=== PATIENT | male | born 1985 | race Hispanic/Latino ===

== ENCOUNTER 2025-04-20 19:45 | Emergency (ER) | payer SELFPAY ==
[2025-04-20] MEDS ORDERED: diphenhydrAMINE 50 MG/ML VIAL ONE (21:14)
[2025-04-20] MEDS ORDERED: Metoclopramide HCl 10 MG (2 mL) VIAL ONE (21:15)
[2025-04-20] MEDS ORDERED: Ketorolac Tromethamine 30 MG (1 mL) VIAL ONE (21:15)
[2025-04-20 21:35] LABS: #Basophils 0.09 10x3/uL (0.0-0.2); #Eosinophils 0.26 10x3/uL (0.0-0.5); #Monocytes 0.63 10x3/uL (0.0-1.1); #Neutrophils 5.44 10x3/uL (1.5-8.4); %Basophils 1.0 % (0.0-2.0); %Eosinophils 2.9 % (0.0-6.0); %Lymphocytes 29.1 % (18.0-47.0); %Monocytes 6.9 % (0.0-10.0); %Neutrophils 59.8 % (40.0-75.0); Hematocrit 42.7 % (38.8-50.0); Hemoglobin 15.0 g/dL (13.5-17.5); Mean Corpuscular Hemoglobin 29.1 pg (27.0-33.0); Mean Corpuscular Volume 82.9 fL (81.2-95.1); Platelet Count 337 10x3/uL (150-450); Red Blood Cell (RBC) Count 5.15 10x6/uL (4.32-5.72); White Blood Cell (WBC) Count 9.10 10x3/uL (3.5-10.5)
[2025-04-20 21:50] LABS: ALT (SGPT) 20 U/L (Less than 45); AST (SGOT) 20 U/L (11-34); Albumin 4.6 g/dL (3.1-4.5); Alkaline Phosphatase 108 U/L (40-110); Anion Gap 12 mmol/L (10-20); BUN (Urea Nitrogen) 15 mg/dL (8.9-20.6); Bilirubin, Total 0.8 mg/dL (0.3-1.2); Calc. Creatinine Clearance 0 mL/min (70-130); Calcium 9.2 mg/dL (7.8-10.44); Carbon Dioxide 25 mmol/L (22-29); Chloride 107 mmol/L (98-107); Globulin 3.3 g/dL (2.4-3.5); Glucose 104 mg/dL (70-105); Potassium 3.6 mmol/L (3.5-5.1); Sodium 140 mmol/L (136-145)
== END 2025-04-20 23:30 | disposition home or self-care (01) ==
LOC: CSHERS 19:45
DX: R51.9 Headache, unspecified (principal); F17.200 Nicotine dependence, unspecified, uncomplicated
CPT/HCPCS: 70450; 80053; 85025; 87426; 96374; 96375; J1200; J1885; J2765